=== PATIENT | female | born 1970 | race Caucasian/White ===

== ENCOUNTER 2020-04-20 10:06 | Observation (INO) | payer OTHER ==
[~2020-04-20] VITALS: Ht 152.4 cm; Wt 70.4 kg
[2020-04-20 10:07] VITALS: BP 155/65
[2020-04-20] MEDS ORDERED: LEVOTHYROXINE88 MCG PO (10:16)
[2020-04-20] MEDS ORDERED: ALPRAZOLAM1 MG PO (10:16)
--- NOTE | 2020-04-20 10:26 | EKG ---
[address] [place] [address] ELECTROCARDIOGRAM REPORT Name: NATHANKATIA KIM Room #: [facility]..#: [id number] Admission: Attend Phys: Discharge: Date of : 68 Report #: [id number] [facility] ED Test Date: 2020-04-20 Test Time: 10:10:35 Pat Name: KATIA EVANS Department: Room: Gender: F Warehouse Technician: VIKY : 1970 Requested By: Lorenza Wallace Order Number: [id number] MD: Gabriel Trejo Measurements Intervals Cherry Log Rate: 76 P: 5 RI: 130 QRS: 54 QRSD: 89 T: 24 QT: 399 QTc: 449 Interpretive Statements Sinus rhythm No previous ECG available for comparison Electronically Signed On 04-20-2020 10:26:44 [employer] by Gabriel Trejo [email or web address] <ELECTRONICALLY SIGNED> By: Gabriel Trejo MD, [facility] 04/20/20 1026 1010 [id number] Gabriel Trejo MD, FACC /EPI
[2020-04-20] MEDS ORDERED: OLANZAPINE15 MG PO (10:29)
--- NOTE | 2020-04-20 10:29 | NUR ---
WARM BLANKET GIVEN
[2020-04-20] MEDS ORDERED: OXCARBAZEPINE600 MG PO (10:30)
[2020-04-20] MEDS ORDERED: ODANSETRON (10:31)
[2020-04-20 10:40] LABS: ABSOLUTE NEUTROPHILS 7.2 thou/uL (1.4-8.2); BASOPHILS 0.9 % (0.0-2.0); EOSINOPHILS 0.6 % (0.0-3.0); HEMATOCRIT 39.6 % (37.0-47.0); HEMOGLOBIN 13.5 gm/dL (12.0-15.0); LYMPHOCYTES 14.8 % (24.0-44.0); MCV 88.1 fL (80.0-100.0); MONOCYTES 6.2 % (1.0-8.0); PLATELET COUNT 276 thou/uL (150-400); POLYS 77.5 % (36.0-66.0); RBC 4.49 mil/uL (4.20-5.00); RDW 13.2 % (10.5-14.5); WBC 9.2 thou/uL (4.0-11.0)
[2020-04-20 11:30] LABS: ANION GAP 16 mmol/L (7-16); BUN 11 mg/dL (7-18); CALCIUM 9.1 mg/dL (8.5-10.1); CHLORIDE 103 mmol/L (98-107); CO2 19 mmol/L (21-32); CREATININE 1.1 mg/dL (0.6-1.0); GLUCOSE 111 mg/dL (74-106); POTASSIUM 3.6 mmol/L (3.5-5.1); SODIUM 138 mmol/L (136-145)
[2020-04-20 11:38] LABS: TROPONIN-I <0.06 ng/mL (<0.06)
--- NOTE | 2020-04-20 13:10 | NUR ---
RERTURNED FROM CS.
[2020-04-20 16:18] VITALS: BP 141/81
[2020-04-20 16:38] VITALS: BP 139/85
--- NOTE | 2020-04-20 17:30 | NUR ---
PT.S C/O CHEST PAIN IS NOW RETURNING AGAIN REPORTSIT 09/10, SOMEONE CAGE WELL. DENIES ANY NAUSEA AT THIS TIME NOW THOUGH. SAID SHE HAS HAD A PINCH NERVED FOR AWHILE AND DID A NERVE CONDUCTION TEST RECENTLY. SHE FEELS LIKE THIS HAS ALL HAPPENED SINCE HER THYROID RADIATION ISSUES AND HAS HAD ISSUES "GETTING MY THYROID DOSAGES CORRECT".
--- NOTE | 2020-04-20 17:33 | NUR ---
NSR, NO ECTOPY, NO EDEMA. PLACED HER ON BED ALARMS.
[2020-04-20 20:20] VITALS: BP 109/67
[2020-04-20 23:14] VITALS: BP 105/57
--- NOTE | 2020-04-21 01:26 | H ---
[facility] [place] [address] HISTORY AND PHYSICAL Name: KATIA EVANS Room #: 213-P [facility] M..#: [id number] Admission: 04/20/20 Attend Phys: Matt Weeks MD Discharge: Date of : 68 Report #: [id number] THIS REPORT FOR: cc: Ricardo Goodrich,Ricardo Yao,Kush Dunn MD ~ HISTORY OF PRESENT ILLNESS: This is a 49-year-old female patient without prior history of coronary artery disease, but risk factors, presents via ambulance for complaints of chest discomfort. The patient describes her symptoms being present for 2-3 days, constantly. She said it started intermittently about 1 month ago, not associated with activity per se. She does work sitting down and has not had any significant strenuous activity occurring. Upon questioning, the discomfort is quite severe and it feels like a fullness or squeezing in the chest. She had been told that there was some abnormality in her spine and had been at nerve conduction studies prior to admission for this evaluation. She stated that while working, she started having discomfort that was in her left shoulder radiating to the back, to side, to chest and the neck. This was associated with some fullness sensation, some shortness of breath. She states she also got nauseated, but did not have any emesis. Upon arrival ECG failed to demonstrate any acute ST segment changes. The patient states that by pressing on the symptomatic area the discomfort is worse. It is also worse by moving the left shoulder. No fever, chills or night sweats. No exertional tightness. Of interest, though she does notice her heart racing at times and this has been going on for quite some time. She never sought any medical attention because it would resolve spontaneously. She states she feels her heart pounding very hard and fast at times and could not associate with any other activities. ALLERGIES: PENICILLIN and INTOLERANT to ASPIRIN. MEDICATIONS: Levothyroxine, alprazolam, olanzapine, oxcarbazepine. PAST MEDICAL HISTORY: Consistent for: 1. Graves' disease, status post radioactive iodine ablation. 2. Anxiety. 3. Hypertension. 4. Dyslipidemia. 5. Tobacco dependence. SOCIAL HISTORY: The patient is a smoker. Does not use recreational drugs, but does consume alcohol socially. FAMILY HISTORY: Significant for premature cardiovascular disease and hypertension. REVIEW OF SYSTEMS: Except for symptoms previously mentioned and those [facility] [address] [place] [address] HISTORY AND PHYSICAL Name: KATIA EVANS Room #: 213-P [facility]..#: [id number] Admission: 04/20/20 Attend Phys: Matt Weeks MD Discharge: Date of : 68 Report #: [id number] commensurate with comorbid state, the 10-point review of system is negative. ELECTROCARDIOGRAM: Normal sinus rhythm, nonspecific ST-T wave changes. LABORATORY DATA: H and H is 13.5 and 39.6, platelet count 276,000. BNP is 125. Troponin initially is less than 0.06. Potassium is 3.6. D-dimer is slightly elevated at 0.53. PHYSICAL EXAMINATION: GENERAL: Well-developed female, resting comfortably, in no acute distress. VITAL SIGNS: Noted and reviewed in the chart. HEENT: Normocephalic, atraumatic. Pupils are equal, round, reactive to light and accommodation. Extraocular muscles are intact. Sclerae and conjunctivae are anicteric. NECK: JVD is normal. Carotid upstrokes are bilaterally symmetrical. No bruits are heard. No thyromegaly. No lymphadenopathy. LUNGS: Clear to auscultation. No wheezes, rhonchi or crackles. No CVA tenderness. CARDIAC: Demonstrates a regular rhythm. Normal first and second heart sounds. No ventricular or atrial gallops, no rubs noted. No murmurs. No lifts or heaves, PMI normal. ABDOMEN: Soft, nontender, nondistended. Normal bowel sounds. EXTREMITIES: Without cyanosis, clubbing or edema. Distal pulses are intact. DTR symmetrical. NEUROLOGIC: Cranial nerves 2-12 are grossly normal and symmetrical. PSYCHIATRIC: Alert, oriented with normal affect. SKIN: Warm and dry. IMPRESSION: 1. Chest pain, reproducible with palpation to some extent. The patient does have some risk factors and in view of this, we will rule out with serial enzymes. If they are not elevated, then we will await the radiologic studies of the spine to make sure that there is no etiology. There is no addressable source, then perfusion scanning, stress testing would be appropriate. 2. Palpitations in an individual that has been noticing them more fully I am going to have her obtain a 2D echo Doppler to rule out any structural abnormalities as well as proceed with event monitoring at discharge. 3. Hypertension. We will monitor and watch her blood pressures by history, although she is not on any antihypertensive currently. 4. Graves' disease, status post radioiodine treatment and apparently lab work last week demonstrated that she was euthyroid on the supplementation of 0.88 mcg of L-thyroxine. [address] [address] HISTORY AND PHYSICAL Name: KATIA EVANS Room #: 213-P [facility] Elodia Perry#: [id number] Admission: 04/20/20 Attend Phys: Matt Weeks MD Discharge: Date of : 68 Report #: [id number] 5. Tobacco dependence. Discussed cessation with the patient that she does voice understanding. <ELECTRONICALLY SIGNED> By: Kush Nixon MD 04/21/20 0126 1831 [id number] Kush Nixon MD /nt
[2020-04-21 04:42] VITALS: BP 106/75
[2020-04-21 04:45] VITALS: BP 106/75
--- NOTE | 2020-04-21 04:50 | NUR ---
SLEPT MOST OF SHIFT. UP AD SANDY TO BATHROOM WITH STEADY GAIT. WORKING ON GOALS AND PLAN OF CARE FOR NOC. PAIN MEDICATION GIVEN FOR NECK PAIN NEEDED. NOT PROGRESSING TOWARDS DISCHARGE GOALS AT THIS TIME. AWAITING TO SPEAK WITH THIS AM AND FIND OUT RESULTS OF TEST. CONTINUE TO ASSES CLOSELY.
[2020-04-21 07:35] VITALS: BP 105/64
--- NOTE | 2020-04-21 08:50 | NUR ---
ASSUMED CARE FOR PT AT 0700. PT RESTING. ASSESSMENT UNCHANGED. PT STILL C/O OF PAIN, EDUCATED PT ON WHEN THE NEXT DOSE OF PAIN MEDICATIONS COULD BE GIVEN, WILL NOTIFY THE DR OF PERSISTANT PAIN. VSS. WILL CONTINUE TO MONITOR.
--- NOTE | 2020-04-21 10:57 | 2DMMODE ---
[facility] [place] [address] 2 D/M-MODE ECHOCARDIOGRAM Name: KATIA EVANS Room #: 213-P [facility] Elodia M.R.#: [id number] Admission: 04/20/20 Attend Phys: Matt Weeks MD Discharge: Date of : 68 Report #: [id number] THIS REPORT FOR: cc: Ricardo Goodrich Kent DO Lammoglia, Francisco J. MD ~ APPROVED REPORT Study performed: 04/21/2020 09:32:44 EXAM: Comprehensive 2D, Doppler, and color-flow Echocardiogram Patient Location: Bedside Room #: 213 Status: routine BSA: 1.67 HR: 66 bpm Rhythm: NSR Other Information Study Quality: Good Indications Dyspnea Chest Pain Hypertension/HDD 2D Dimensions RVDd: 30.99 mm IVSd: 8.89 (7-11mm) LVOT Diam: 20.00 (18-24mm) LVDd: 41.09 mm PWd: 7.00 (7-11mm) LVDs: 29.43 (25-40mm) Aortic Root: 25.55 mm IVC: 12.00 mm Volumes Left Atrial Volume (Systole) Single Plane 4CH: 42.15 mL Single Plane 2CH: 60.66 mL LA ESV Index: 33.00 mL/m2 Aortic Valve AoV Peak Arun.: 1.36 m/s AO Peak Gr.: 7.42 mmHg LVOT Max P.27 mmHg LVOT Max V: 1.15 m/s [facility] [address] [place] [address] 2 D/M-MODE ECHOCARDIOGRAM Name: KATIA EVANS Room #: 213-P [facility] IN ..#: [id number] Admission: 04/20/20 Attend Phys: Matt Weeks MD Discharge: Date of : 68 Report #: [id number] NARCISO Vmax: 2.65 cm2 Mitral Valve E/A Ratio: 91.0 MV E Max Arun.: 0.91 m/s MV A Arun.: 0.01 m/s IVRT: 96.89 ms Pulmonary Valve PV Peak Arun.: 0.93 m/s PV Peak Gr.: 3.50 mmHg Pulmonary Vein P Vein S: 0.52 m/s P Vein A: 0.21 m/s P Vein D: 0.40 m/s P Vein A Dur.: 156.9 msec P Vein S/D Ratio: 1.30 Tricuspid Valve TR Peak Arun.: 2.39 m/s TR Peak Gr.: 22.78 mmHg PA Pressure: 28.00 mmHg Left Ventricle The left ventricle is normal size. There is normal LV segmental wall motion. There is normal left ventricular wall thickness. The left ventricular systolic function is normal. The left ventricular ejection fraction is within the normal range. LVEF is 55-60%. The left ventricular diastolic function is normal. Right Ventricle The right ventricle is normal size. The right ventricular systolic function is normal. Atria The left atrium size is normal. The right atrium size is normal. Aortic Valve The aortic valve is normal in structure. No aortic regurgitation is present. There is no aortic valvular stenosis. Mitral Valve The mitral valve is normal in structure. Trace to mild mitral regurgitation. No evidence of mitral valve stenosis. Tricuspid Valve The tricuspid valve is normal in structure. There is trace tricuspid [facility] [address] [place] [address] 2 D/M-MODE ECHOCARDIOGRAM Name: KATIA EVANS Room #: 213-P [facility] M.R.#: [id number] Admission: 04/20/20 Attend Phys: Matt Weeks MD Discharge: Date of : 68 Report #: [id number] regurgitation. Estimated PAP 28 mmHg. There is no pulmonary hypertension. Pulmonic Valve The pulmonary valve is normal in structure. There is no pulmonic valvular regurgitation. Great Vessels The aortic root is normal in size. IVC is normal in size and collapses >50% with inspiration. Pericardium There is no pericardial effusion. <Conclusion> The left ventricle is normal size. LVEF is 55-60%. The aortic valve is normal in structure. The mitral valve is normal in structure. Trace to mild mitral regurgitation. The tricuspid valve is normal in structure. There is trace tricuspid regurgitation. Estimated PAP 28 mmHg. There is no pulmonary hypertension. The pulmonary valve is normal in structure. The aortic root is normal in size. There is no pericardial effusion. <ELECTRONICALLY SIGNED> By: Kush Nixon MD 04/21/20 1056 1056 1056 Kuhs Nixon MD /INF
--- NOTE | 2020-04-21 12:05 | NUR ---
UPON ENTERING ROOM TO PERFORM PATIENTS NOON ASSESSMENT, PT WAS NO WHERE TO BE FOUND IN ROOM, IV LAYING ON FLOOR WITH FLUIDS REMAIN RUNNING AND HEART MONITOR LAYING ON BEDSIDE TABLE. I ATTEMPTED TO CONTACT DR FOSTER X2 BEFORE PATIENT ELOPED.
== END 2020-04-21 12:12 | disposition home or self-care (01) ==
LOC: ER 10:06 → 2N 14:41 → EROBS 14:41 → 2N 16:54
PROVIDERS: Emergency Medicine; ADMIT Hospitalist; ATTEND Hospitalist
DX: R07.89 Other chest pain (principal); E05.00 Thyrotoxicosis with diffuse goiter without thyrotoxic crisis or storm; F41.9 Anxiety disorder, unspecified; I10 Essential (primary) hypertension; E78.5 Hyperlipidemia, unspecified; F17.200 Nicotine dependence, unspecified, uncomplicated; R00.2 Palpitations; M54.12 Radiculopathy, cervical region; Z82.49 Family history of ischemic heart disease and other diseases of the circulatory system